=== PATIENT | female | born 1955 | race Caucasian/White ===

== ENCOUNTER → 2020-11-23 | Day surgery (SDC) | payer OTHER ==
[~2020-11-23] MED LIST: DICLOFENAC GEL TD; HYDROCHLOROTHIA25 MG PO; IBU600 MG PO; INCRUSE ELLI62.5 MCG INH; IPRAT-ALBUT 0.5-3 ML INH; MONTELUKAST SOD10 MG PO; VENTOLIN HFA 66.7 GM INH; WIXELA 250-501 EACH INH
[2020-11-23 08:26] LABS: RED BLOOD COUNT 5.18 M/UL (4.00-5.10); WHITE BLOOD COUNT 5.9 K/UL (4.5-11.0)
== END | disposition home or self-care (01) ==
LOC: OR 07:28
PROVIDERS: Obstetrics & Gynecology
PROC: 0U5 Female Reproductive System, Destruction (ICD-10-PCS; principal; 2020-11-23 08:45)
DX: N89.0 Mild vaginal dysplasia (principal); J44.9 Chronic obstructive pulmonary disease, unspecified; F17.210 Nicotine dependence, cigarettes, uncomplicated; Z20.822 Contact with and (suspected) exposure to COVID-19; Z79.899 Other long term (current) drug therapy; Z90.710 Acquired absence of both cervix and uterus
CPT/HCPCS: 81001; 85025; 93005; J1100; J1885; J2001; J2250; J2405; J2704; J3010; J7120

== ENCOUNTER → 2021-06-05 | Outpatient (CLI) | payer OTHER | LOC: EXRD 11:06 | DX: M05.79 Rheumatoid arthritis with rheumatoid factor of multiple sites without organ or systems involvement (principal); M19.042 Primary osteoarthritis, left hand; M19.041 Primary osteoarthritis, right hand | CPT/HCPCS: 73130; 73630 ==